=== PATIENT | male | born 1970 | race Caucasian/White ===

== ENCOUNTER 2016-08-21 10:11 | Inpatient (IN) | payer BC, MEDICAID ==
[~2016-08-21] VITALS: Ht 175.3 cm; Wt 93.4 kg
[~2016-08-21 10:11] MED LIST: ACET325T53 PO; ACID1TAB4 PO; ALBU2.5V7 NEB; AMIO200T2 PO; AMLO5TAB2 PO; ASPI-991 PO; ASPI81TA31 PO; ATOR20TA PO; Acetaminophen PO; CALC667C6 PO; CHOL10002 PO; FERR325T28 PO; FLUT1DIS28 INH; Folic Acid PO; HYDR-3326 PO; HYDR-894 PO; IPRA0.2S6 NEB; LACT1TAB20 PO; LEVE250T2 PO; LEVE250T4 PO; LEVE500T9 PO; LIDO30AD10 TD; LORA1TAB PO; METO25TA6 PO; PANT40TA2 PO; PHEN100C4 PO; PHEN200C5 PO; PHEN300C6 PO; PRED10TA PO; PRED20TA PO; RISP0.2515 PO; RISP2TAB5 PO; SENN-15 PO; SENN8.6T6 PO; THIA100T13 PO; TRAM50TA2 PO; Zolpidem Tartrate PO
--- NOTE | 2016-08-21 10:25 | NUR ---
PT IS IN ROOM #2B. DR SANDERS EVALUATED THE PT.
[2016-08-21 10:45] LABS: ABG BASE EXCESS -6.8 mmol/L; ABG HCO3 18.1 mmol/L; ABG PCO2 33.7 mmHg (35.0-45.0); ABG PH 7.348 (7.350-7.450); ABG PO2 106.6 mmHg (75.0-100.0); ABG SITE RIGHT RADIAL; ABG TOTAL HEMOGLOBIN 9.8 G/dL (13.5-18.0); COHb 0.8 % (0.5-1.5); MetHb 0.1 % (0.0-1.5); O2Hb 96.7 % (94.0-97.0)
[2016-08-21 11:00] LABS: BASOPHILS % (AUTO) 0.2 % (0.0-2.0); EOSINOPHILS # (AUTO) 0.4 K/uL (0.0-0.7); EOSINOPHILS % (AUTO) 3.3 % (0.0-7.0); HEMATOCRIT 26.8 % (40.0-50.0); HEMOGLOBIN 9.1 g/dL (14.0-18.0); LYMPHOCYTES # (AUTO) 1.2 K/uL (0.8-4.8); LYMPHOCYTES % (AUTO) 11.2 % (20.5-51.5); MEAN CORPUSCULAR HGB CONC 34 g/dL (32.0-37.0); MEAN CORPUSCULAR VOLUME 91.4 fL (82.0-92.0); MONOCYTES # (AUTO) 0.5 K/uL (0.1-1.30); MONOCYTES % (AUTO) 4.8 % (0.0-11.0); NEUTROPHILS # (AUTO) 8.9 K/uL (1.8-8.9); NEUTROPHILS % (AUTO) 80.5 % (38.5-71.5); PLATELET COUNT (AUTO) 204 K/uL (150-450); RED BLOOD CELL COUNT(AUTO) 2.93 MIL/uL (4.70-6.10); RED CELL DISTRIBUTION WIDTH 14.1 % (11.5-14.5); WHITE BLOOD COUNT (AUTO) 11.1 K/uL (4.0-11.2)
[2016-08-21 11:05] LABS: CALCIUM 8.3 mg/dL (8.5-10.1); POTASSIUM 5.2 mmol/L (3.5-5.1)
[2016-08-21 11:11] LABS: ALBUMIN 3.6 g/dL (3.4-5.0); BILIRUBIN,DIRECT 0.1 mg/dL (0.0-0.2); BILIRUBIN,TOTAL 0.3 mg/dL (0.2-1.0); TOTAL PROTEIN, SERUM 7.5 g/dL (6.4-8.2)
[2016-08-21 11:12] LABS: CREATININE 10.6 mg/dL (0.6-1.3)
[2016-08-21 11:40] LABS: THYROID STIMULATING HORMONE 2.473 mIU/mL (0.358-3.740)
--- NOTE | 2016-08-21 15:21 | NUR ---
ZEFERINO called to ED by OTILIO Baxter to assist with possible discharge planning/dialysis arrangements with patient. Patient was recently [place] [facility] [place] [facility] [phone], [id number] [address], [id number] (see ZEFERINO's notes from previous admissions). ZEFERINO consulted with Dr. Bermudez, who stated that patient requires dialysis and requested ZEFERINO's assistance with following up on the dialysis arrangements that had been made upon last discharge. ZEFERINO spoke with the Chris nurse at [facility], who stated that due to patient having a trach, the dialysis center required an RT to be with patient during the time patient was receiving dialysis. ZEFERINO then called [facility] and spoke with Lydia [phone], who confirmed that an RT was required while the patient was at their facility. Lydia also stated that a contract was still pending with [facility], which was also holding up their ability to provide services to patient. ZEFERINO then spoke with Galina [phone], hr administrator at [facility], who confirmed the information that ZEFERINO had obtained from Lydia at [facility], and stated that they were not equipped to provide an RT to be with the patient 3 x week, during his dialysis treatments. ZEFERINO then consulted with Dr. Bermudez again, and with Dr. Reyes. A discussion was had regarding utilizing another dialysis center, and Dr. Reyes was fine with that. ZEFERINO tried contacting [employer], , and was unable to get past the automated answering service due to the service continuously rotating through the extension options and not being able to speak with a live person. ZEFERINO consulted with Dr. Bermudez, who stated that she will be admitting patient for further care. See MD notes for additional details.
--- NOTE | 2016-08-21 16:08 | NUR ---
PICC LINE RNs GUEVARA AND MELVA WERE CALLED TO INSERT PICC LINE. MESSAGES WERE LEFT AT [facility] [place].
--- NOTE | 2016-08-21 16:10 | NUR ---
RADIO FREQUENCY DESIGN ENGINEER KRYSTYNA WAS NOTIFIED ABOUT PICC LINE INSERTION.
--- NOTE | 2016-08-21 16:41 | NUR ---
PT WAS TRANSFERED TO TELEMETRY ROOM #228. REPORT GIVEN TO STREAM CONTROL OFFICER.
[2016-08-21 16:50] VITALS: BP 106/73
--- NOTE | 2016-08-21 17:13 | NUR ---
Dr. Dixon paged in regard to admitting orders for patient. Including medication and oxygen orders. Awaiting call back. Dr. Reyes is the admitting MD. Patient is stable at this time. Vitals WNL. Patient is malodorous. Trach hasnt been changed in quite awhile based on the lack of cleanliness. Inner cannula changed. Patient placed on telemetry.
--- NOTE | 2016-08-21 18:53 | NUR ---
Dr. Dixon has not called back with orders yet for patient. PICCline nurse Teofilo came in to put in a midline in the right upper arm number 18 gauge. Patient is noted slightly agitated and aggressive. Patient insisting on getting IV pain medications. Patient however needs orders.
[2016-08-21 19:00] VITALS: BP 149/92
--- NOTE | 2016-08-21 20:00 | NUR ---
RECEIVED PATIENT ASLEEP IN BED. NO S/S OF PAIN OR DISCOMFORT. NO RESP. DISTRESS NOTED. MID-LINE NOTED TO RIGHT UPPER ARM. VSS. ON TELE SR WITH BBB. TRACH NOTED, #6 SHILEY WITH TRACH MASK, @ 28% AEROSOL. CALL LIGHT IN REACH. ALL NEEDS ATTENDED. WILL CONTINUE TO MONITOR.
[2016-08-21] MEDS ORDERED: ACETAMINOPHEN 325 MG TABLET PO PRN (20:30)
[2016-08-21] MEDS ORDERED: TRAMADOL HCL 50 MG TABLET PO PRN (20:30)
[2016-08-21] MEDS ORDERED: PHENYTOIN PO SCH (20:30)
[2016-08-21] MEDS: ATORVASTATIN 20 MG TABLET PO SCH (20:54)
[2016-08-21] MEDS: LEVETIRACETAM 250 MG TABLET PO SCH ×2 (20:54)
[2016-08-21] MEDS: risperiDONE 2 MG TABLET PO SCH (21:00)
[2016-08-21] MEDS ORDERED: risperiDONE 0.25 MG TABLET PO SCH (21:00)
[2016-08-21] MEDS: SENNOSIDES 1 TABLET PO SCH (21:24)
[2016-08-21] MEDS: PHENYTOIN SODIUM EXTENDED 100 MG CAPSULE.SA PO SCH (21:24)
[2016-08-21] MEDS: HYDROCODONE/APAP 5-325MG TABLET PO PRN (21:34)
[2016-08-21] MEDS: LORAZEPAM 1 MG TABLET PO PRN (21:34)
[2016-08-22 00:07] VITALS: BP 100/46
[2016-08-22 04:00] VITALS: BP 96/52
[2016-08-22] MEDS: HYDROCODONE/APAP 5-325MG TABLET PO PRN ×4 (05:48→23:03)
--- NOTE | 2016-08-22 06:32 | NUR ---
PATIENT ASLEEP IN BED. ON TELE SR WITH BBB. NO RESP. DISTRESS NOTED. CALL LIGHT IN REACH. ALL NEEDS ATTENDED. WILL CONTINUE TO MONITOR.
[2016-08-22] MEDS ORDERED: HYDROCODONE/APAP 5-325MG TABLET PO PRN (08:30)
[2016-08-22] MEDS ORDERED: Medication Not On Formulary EA (Lactobacillus Acidophilus (Acidophilus) 1 EACH) PO SCH (09:00)
[2016-08-22] MEDS ORDERED: predniSONE 10 MG TABLET PO SCH (09:00)
[2016-08-22] MEDS ORDERED: ASPIRIN 81 MG TAB.CHEW PO SCH (09:00)
[2016-08-22] MEDS ORDERED: predniSONE 20 MG TABLET PO SCH ×2 (09:00)
[2016-08-22] MEDS ORDERED: risperiDONE 2 MG TABLET PO SCH (09:00)
[2016-08-22] MEDS ORDERED: ACIDOPHILUS/BULGARICUS CHEW TAB PO SCH (09:00)
[2016-08-22] MEDS ORDERED: EPOETIN ALFA 10,000 UNITS/ML VIAL SQ ONE (09:33)
[2016-08-22] MEDS: IPRATROPIUM BROMIDE 0.5 MG/2.5 ML NEBU NEB SCH ×3 (10:04→19:48)
[2016-08-22] MEDS: ALBUTEROL SULFATE 2.5 MG/3 ML NEBU NEB SCH ×3 (10:04→19:48)
[2016-08-22] MEDS: FERROUS SULFATE 325 MG TABEC PO SCH (10:08)
[2016-08-22] MEDS: THIAMINE HCL 100 MG TABLET PO SCH (10:08)
[2016-08-22] MEDS: LIDOCAINE 5% PATCH TD SCH (10:09)
[2016-08-22] MEDS: CHOLECALCIFEROL 1,000 UNIT TABLET PO SCH ×2 (10:09→22:31)
[2016-08-22] MEDS: AMLODIPINE 5 MG TABLET PO SCH ×2 (10:09→22:29)
[2016-08-22] MEDS: PHENYTOIN 50 MG TAB.CHEW PO SCH (10:10)
[2016-08-22] MEDS: METOPROLOL TARTRATE 25 MG TABLET PO SCH ×3 (10:11→17:59)
[2016-08-22] MEDS: PHENYTOIN SODIUM EXTENDED 100 MG CAPSULE.SA PO SCH ×2 (10:11→21:00)
[2016-08-22] MEDS: AMIODARONE HCL 200 MG TABLET PO SCH (10:12)
[2016-08-22] MEDS: ASPIRIN EC 81 MG TABLET.DR PO SCH (10:12)
[2016-08-22] MEDS: ACIDOPHILUS/BULGARICUS CHEW TAB PO SCH ×2 (10:12→21:00)
[2016-08-22] MEDS: CALCIUM ACETATE 667 MG CAPSULE PO SCH ×3 (10:12→17:10)
[2016-08-22] MEDS: FLUTICASONE/SALMETEROL 250/50 INHALER INH SCH ×2 (10:20→21:00)
--- NOTE | 2016-08-22 10:30 | NUR ---
PT REQUESTED DILAUDID IV, PAGED DR. HOOD OFFICE
--- NOTE | 2016-08-22 11:00 | NUR ---
PT REQUESTED BENADRYL IV, PAGED DR. HOOD
[2016-08-22 11:16] VITALS: BP 101/64
[2016-08-22] MEDS: hydrALAZINE HCL 25 MG TABLET PO SCH ×2 (14:00→22:00)
--- NOTE | 2016-08-22 14:24 | NUR ---
PT WANTS TO LET DR. HOOD THAT HE WANTS "TO GO HOME". AND WANTS THE DR. HOOD KNOW OF THAT
--- NOTE | 2016-08-22 14:24 | NUR ---
PT REQUESTING DILAUDID AND BENADRYL IV, PAGED DR HOOD OFFICE.
--- NOTE | 2016-08-22 14:38 | NUR ---
DR HOOD CALLED IN TO ORDER BANADRYL IV 25MG Q6H PRN, ORDER NOTED CARRIED OUT.
[2016-08-22] MEDS: diphenhydrAMINE 50 MG/1 ML VIAL IV PRN ×2 (14:52→22:33)
[2016-08-22] MEDS ORDERED: FLEET ENEMA 133 ML BOTTLE RC PRN (15:30)
[2016-08-22] MEDS ORDERED: BISACODYL 10 MG SUPP.RECT RC PRN (15:30)
[2016-08-22 15:36] VITALS: BP 145/90
--- NOTE | 2016-08-22 15:41 | NUR ---
pt received dialysis. Pt's VS WNL. 2.5 L out per dialysis nurse.
[2016-08-22] MEDS: MUPIROCIN 2% OINT 22 GM TUBE NS SCH ×2 (16:09→21:00)
--- NOTE | 2016-08-22 19:01 | NUR ---
PT IS LAYING IN BED COMFORTABLY. NO S/S OF RESPIRATORY DISTRESS NOTED. PT REMOVED SHILEY MULTIPLE TIMES, EDUCATION IS GIVEN TO THE PT. SHILEY #6 IS REPLACED. NO PAIN NOTED. MIDLINE IS INTACT/PATENT. ALL SAFETY NEEDS AR MET.
--- NOTE | 2016-08-22 19:10 | NUR ---
Received report from Lainey Castaneda RN. Pt appears anxious but cooperative.
[2016-08-22 20:58] VITALS: BP 138/74
[2016-08-22] MEDS ORDERED: SENNOSIDES/DOCUSATE SODIUM TABLET PO SCH (21:00)
[2016-08-22] MEDS ORDERED: LEVETIRACETAM 500 MG TABLET PO SCH (21:00)
[2016-08-22] MEDS: SENNOSIDES 1 TABLET PO SCH (22:28)
[2016-08-22] MEDS: LEVETIRACETAM 250 MG TABLET PO SCH (22:31)
[2016-08-22] MEDS: risperiDONE 2 MG TABLET PO SCH (22:31)
[2016-08-22] MEDS: ATORVASTATIN 20 MG TABLET PO SCH (22:31)
--- NOTE | 2016-08-22 23:08 | NUR ---
RN unintentionally charted an administration of Kirkwood 5/325mg at 23:03. Medication was not administered or due at this time. Charting of administration was undone. This note serves as clarification for any confusion as a result of the charting on this medication.
[2016-08-23 00:20] VITALS: BP 121/67
[2016-08-23] MEDS: diphenhydrAMINE 50 MG/1 ML VIAL IV PRN ×4 (04:38→23:00)
[2016-08-23 05:16] VITALS: BP 134/87
[2016-08-23] MEDS: hydrALAZINE HCL 25 MG TABLET PO SCH ×3 (06:00→23:30)
[2016-08-23 06:44] LABS: BASOPHILS % (AUTO) 0.4 % (0.0-2.0); EOSINOPHILS # (AUTO) 0.7 K/uL (0.0-0.7); EOSINOPHILS % (AUTO) 7.6 % (0.0-7.0); HEMATOCRIT 24.3 % (40.0-50.0); HEMOGLOBIN 8.5 g/dL (14.0-18.0); LYMPHOCYTES # (AUTO) 1.5 K/uL (0.8-4.8); LYMPHOCYTES % (AUTO) 17.6 % (20.5-51.5); MEAN CORPUSCULAR HEMOGLOBIN 31.9 uug (27.0-31.0); MEAN CORPUSCULAR HGB CONC 35 g/dL (32.0-37.0); MEAN CORPUSCULAR VOLUME 91.4 fL (82.0-92.0); MONOCYTES # (AUTO) 0.8 K/uL (0.1-1.30); MONOCYTES % (AUTO) 8.9 % (0.0-11.0); NEUTROPHILS # (AUTO) 5.8 K/uL (1.8-8.9); NEUTROPHILS % (AUTO) 65.5 % (38.5-71.5); PLATELET COUNT (AUTO) 162 K/uL (150-450); RED BLOOD CELL COUNT(AUTO) 2.66 MIL/uL (4.70-6.10); WHITE BLOOD COUNT (AUTO) 8.8 K/uL (4.0-11.2)
[2016-08-23 07:00] LABS: ALBUMIN 3.6 g/dL (3.4-5.0); BILIRUBIN,TOTAL 0.4 mg/dL (0.2-1.0); CALCIUM 8.3 mg/dL (8.5-10.1); MAGNESIUM 2.1 mg/dL (1.8-2.4); PHOSPHOROUS 6.4 mg/dL (2.5-4.9); POTASSIUM 3.5 mmol/L (3.5-5.1); TOTAL PROTEIN, SERUM 7.3 g/dL (6.4-8.2)
[2016-08-23] MEDS: PANTOPRAZOLE SODIUM 40 MG TABLET.DR PO SCH (07:07)
[2016-08-23] MEDS: IPRATROPIUM BROMIDE 0.5 MG/2.5 ML NEBU NEB SCH ×5 (07:08→19:18)
[2016-08-23] MEDS: ALBUTEROL SULFATE 2.5 MG/3 ML NEBU NEB SCH ×5 (07:35→19:19)
--- NOTE | 2016-08-23 07:56 | NUR ---
PT IS LAYING IN BED COMFORTABLY.NO S/S OF RESPIRATORY DISTRESS NOTED. NO PAIN NOTED. MIDLINE INTACT/PATENT. ALL SAFETY NEEDS ARE MET. WILL CONTINUE TO MONITOR.
[2016-08-23] MEDS: CALCIUM ACETATE 667 MG CAPSULE PO SCH ×3 (08:42→17:08)
[2016-08-23] MEDS: LIDOCAINE 5% PATCH TD SCH (09:14)
[2016-08-23] MEDS: MUPIROCIN 2% OINT 22 GM TUBE NS SCH ×2 (09:14→20:47)
[2016-08-23] MEDS: FLUTICASONE/SALMETEROL 250/50 INHALER INH SCH ×2 (09:14→20:47)
[2016-08-23] MEDS: PHENYTOIN 50 MG TAB.CHEW PO SCH (09:27)
[2016-08-23] MEDS: ASPIRIN EC 81 MG TABLET.DR PO SCH (09:27)
[2016-08-23] MEDS: HYDROCODONE/APAP 5-325MG TABLET PO PRN ×3 (09:28→22:52)
[2016-08-23] MEDS: FERROUS SULFATE 325 MG TABEC PO SCH (09:28)
[2016-08-23] MEDS: AMLODIPINE 5 MG TABLET PO SCH ×2 (09:28→21:43)
[2016-08-23] MEDS: AMIODARONE HCL 200 MG TABLET PO SCH (09:28)
[2016-08-23] MEDS: ACIDOPHILUS/BULGARICUS CHEW TAB PO SCH ×2 (09:28→20:49)
[2016-08-23] MEDS: CHOLECALCIFEROL 1,000 UNIT TABLET PO SCH ×2 (09:29→20:49)
[2016-08-23] MEDS: PHENYTOIN SODIUM EXTENDED 100 MG CAPSULE.SA PO SCH ×2 (09:29→20:49)
[2016-08-23] MEDS: METOPROLOL TARTRATE 25 MG TABLET PO SCH ×3 (09:29→17:00)
[2016-08-23] MEDS: THIAMINE HCL 100 MG TABLET PO SCH (09:30)
[2016-08-23] MEDS ORDERED: ZOLPIDEM 5 MG TABLET PO PRN (09:45)
[2016-08-23 11:12] VITALS: BP 131/76
[2016-08-23 15:05] VITALS: BP 128/86
--- NOTE | 2016-08-23 18:58 | NUR ---
PT IS SITTING IN BED COMFORTABLY. NO S/S OF RESPIRATORY DISTRESS NOTED. NO PAIN NOTED. ALL SAFETY NEEDS ARE MET. MIDLINE INTACT/PATENT.
[2016-08-23 20:08] VITALS: BP 128/70
[2016-08-23] MEDS: LORAZEPAM 1 MG TABLET PO PRN (20:25)
[2016-08-23] MEDS: ATORVASTATIN 20 MG TABLET PO SCH (20:49)
[2016-08-23] MEDS: risperiDONE 2 MG TABLET PO SCH (20:49)
[2016-08-23] MEDS: SENNOSIDES 1 TABLET PO SCH (20:49)
[2016-08-23] MEDS: LEVETIRACETAM 250 MG TABLET PO SCH ×2 (20:49→21:00)
--- NOTE | 2016-08-23 21:00 | NUR ---
Keppra 250mg PO @ 2100 not given. MD order is for "After dialysis". Regularly scheduled dose of Keppra 750mg PO "HS"@2100 given per MD order.
[2016-08-24 05:51] VITALS: BP 117/74
[2016-08-24] MEDS: hydrALAZINE HCL 25 MG TABLET PO SCH ×3 (06:00→21:37)
[2016-08-24] MEDS: PANTOPRAZOLE SODIUM 40 MG TABLET.DR PO SCH (06:37)
[2016-08-24] MEDS: LORAZEPAM 1 MG TABLET PO PRN ×3 (06:55→23:48)
[2016-08-24] MEDS: diphenhydrAMINE 50 MG/1 ML VIAL IV PRN ×3 (07:08→20:10)
[2016-08-24] MEDS: IPRATROPIUM BROMIDE 0.5 MG/2.5 ML NEBU NEB SCH ×4 (07:10→19:18)
[2016-08-24] MEDS: ALBUTEROL SULFATE 2.5 MG/3 ML NEBU NEB SCH ×4 (07:10→19:18)
--- NOTE | 2016-08-24 07:30 | NUR ---
Received awake. alert, oriented x 4, sitting by the door, asking for Benadryl, given. He went back to bed and resting after.
[2016-08-24] MEDS: CALCIUM ACETATE 667 MG CAPSULE PO SCH ×3 (08:00→18:14)
[2016-08-24] MEDS: AMLODIPINE 5 MG TABLET PO SCH ×2 (09:00→20:28)
[2016-08-24] MEDS: METOPROLOL TARTRATE 25 MG TABLET PO SCH ×3 (09:00→18:14)
[2016-08-24] MEDS: MUPIROCIN 2% OINT 22 GM TUBE NS SCH ×2 (10:59→20:28)
[2016-08-24] MEDS: FLUTICASONE/SALMETEROL 250/50 INHALER INH SCH ×2 (10:59→20:27)
[2016-08-24] MEDS: AMIODARONE HCL 200 MG TABLET PO SCH (11:00)
--- NOTE | 2016-08-24 11:00 | NUR ---
Refused to take medications at this time
[2016-08-24] MEDS: ASPIRIN EC 81 MG TABLET.DR PO SCH (11:01)
[2016-08-24] MEDS: PHENYTOIN 50 MG TAB.CHEW PO SCH (11:01)
[2016-08-24] MEDS: PHENYTOIN SODIUM EXTENDED 100 MG CAPSULE.SA PO SCH ×2 (11:01→20:26)
[2016-08-24] MEDS: FERROUS SULFATE 325 MG TABEC PO SCH (11:02)
[2016-08-24] MEDS: ACIDOPHILUS/BULGARICUS CHEW TAB PO SCH ×2 (11:02→20:26)
[2016-08-24] MEDS: LIDOCAINE 5% PATCH TD SCH (11:04)
[2016-08-24 11:28] VITALS: BP 125/62
[2016-08-24] MEDS: FOLIC ACID 1 MG TABLET PO SCH (13:39)
[2016-08-24] MEDS: THIAMINE HCL 100 MG TABLET PO SCH (13:39)
[2016-08-24] MEDS: CHOLECALCIFEROL 1,000 UNIT TABLET PO SCH ×2 (13:40→20:26)
--- NOTE | 2016-08-24 13:40 | NUR ---
Hemodialysis done with 3.5 L output. BP 118/59, hr 71. Due medications given.
[2016-08-24] MEDS: HYDROCODONE/APAP 5-325MG TABLET PO PRN ×2 (13:56→20:09)
[2016-08-24 16:06] VITALS: BP 115/68
--- NOTE | 2016-08-24 17:40 | NUR ---
Sleeping after Ativan po given.
[2016-08-24] MEDS: ATORVASTATIN 20 MG TABLET PO SCH (20:26)
[2016-08-24] MEDS: LEVETIRACETAM 250 MG TABLET PO SCH (20:27)
[2016-08-24] MEDS: SENNOSIDES 1 TABLET PO SCH (20:27)
[2016-08-24] MEDS: risperiDONE 2 MG TABLET PO SCH (20:27)
[2016-08-24 21:37] VITALS: BP 131/83
[2016-08-24 22:15] VITALS: BP 125/71
[2016-08-25] MEDS: diphenhydrAMINE 50 MG/1 ML VIAL IV PRN ×3 (02:06→13:57)
[2016-08-25] MEDS: PANTOPRAZOLE SODIUM 40 MG TABLET.DR PO SCH (06:29)
[2016-08-25 06:30] VITALS: BP 118/76
[2016-08-25] MEDS: hydrALAZINE HCL 25 MG TABLET PO SCH (06:30)
--- NOTE | 2016-08-25 06:33 | NUR ---
END OF SHIFT NOTES: PT SLEEPING AT THIS TIME. IN NO ACUTE SIGNS OF DISTRESS. TRACH INTACT. REQUESTED FOR BENADRYL, NORCO, ATIVAN, AND AMBIEN DURING SHIFT, GIVEN PRESCRIBED. PT CONSTANTLY ASKED FOR SNACKS (CRACKERS, JELLO). SAFETY OBSERVED. CALL LIGHT WITHIN REACH.
--- NOTE | 2016-08-25 07:29 | NUR ---
Sleeping, comfortable. O2 to trach
[2016-08-25] MEDS: ALBUTEROL SULFATE 2.5 MG/3 ML NEBU NEB SCH ×3 (07:59→15:18)
[2016-08-25] MEDS: IPRATROPIUM BROMIDE 0.5 MG/2.5 ML NEBU NEB SCH ×3 (07:59→15:18)
[2016-08-25] MEDS ORDERED: AMIO200T2 PO (08:14)
[2016-08-25] MEDS: PHENYTOIN SODIUM EXTENDED 100 MG CAPSULE.SA PO SCH (08:26)
[2016-08-25] MEDS: CALCIUM ACETATE 667 MG CAPSULE PO SCH ×2 (08:26→12:15)
[2016-08-25] MEDS: FLUTICASONE/SALMETEROL 250/50 INHALER INH SCH (08:26)
[2016-08-25] MEDS: MUPIROCIN 2% OINT 22 GM TUBE NS SCH (08:26)
[2016-08-25] MEDS: ASPIRIN EC 81 MG TABLET.DR PO SCH (08:27)
[2016-08-25] MEDS: ACIDOPHILUS/BULGARICUS CHEW TAB PO SCH (08:27)
[2016-08-25] MEDS: FERROUS SULFATE 325 MG TABEC PO SCH (08:27)
[2016-08-25] MEDS: PHENYTOIN 50 MG TAB.CHEW PO SCH (08:27)
[2016-08-25] MEDS: FOLIC ACID 1 MG TABLET PO SCH (08:28)
[2016-08-25] MEDS: CHOLECALCIFEROL 1,000 UNIT TABLET PO SCH (08:28)
[2016-08-25] MEDS: THIAMINE HCL 100 MG TABLET PO SCH (08:28)
[2016-08-25] MEDS: HYDROCODONE/APAP 5-325MG TABLET PO PRN (08:29)
[2016-08-25] MEDS: METOPROLOL TARTRATE 25 MG TABLET PO SCH ×2 (08:35→12:16)
[2016-08-25] MEDS: AMLODIPINE 5 MG TABLET PO SCH (08:36)
[2016-08-25] MEDS: LIDOCAINE 5% PATCH TD SCH (08:37)
[2016-08-25] MEDS ORDERED: AMIODARONE HCL 200 MG TABLET PO SCH ×2 (09:00→15:00)
--- NOTE | 2016-08-25 10:15 | NUR ---
Faxed patient's Clinical Reviews to [facility] Derrick ROD [ ; ], with Ref#[id number]
--- NOTE | 2016-08-25 10:16 | NUR ---
The patient will be discharged today to [facility] [ ; [address] [place] [address]] where he has a schedule for Mondays, Wednesdays, and Fridays at 2:45 p.m. Spoke to Ariel from [facility] [ ; ] and he confirmed that they will provide the RT needed by the patient to stay with him for the duration of the dialysis. [facility] [ ] arranged for him to be picked up from [facility] to [facility] and then once his dialysis is over he will be discharged back to [facility] [ ; [address] [place] [address]]. Also spoke with Galina [ ; [phone]], from [facility] confirmed that they will admit the patient today after his dialysis. [facility] already faxed her a contract and she stated that she will sign the contract and fax it back to them today. The patient is aware and in agreement with his discharge plan. His RN, Sharmila, is updated on his discharge as well.
[2016-08-25 12:00] VITALS: BP 107/60
[2016-08-25] MEDS: LORAZEPAM 1 MG TABLET PO PRN (12:15)
[2016-08-25 13:25] LABS: HCV AB 0.1 s/co ratio (0.0-0.9); HEPATITIS B SURFACE AB Reactive (.); HEPATITIS B SURFACE AG Negative (Negative)
--- NOTE | 2016-08-25 14:13 | NUR ---
With discharge order to [facility], will do Hemodialysis first at [facility], arranged. Midline removed. HD cath intact. DC instruction given to patient, verbalized understanding. Went home per gurney/ambulance in fair condition, not in distress, afebrile
--- NOTE | 2016-08-25 16:23 | NUR ---
Lauren from [facility] called and stated that they are not providing dialysis for the patient because they have not given him care for more than 30 days and their protocol is to get another authorization from the insurance company. Spoke to Dr. Reyes and he would like for the patient to return to [facility] to [facility] [ ; [address], [place] [address]]. Carolina from [facility] to [facility] confirmed that they will re-admit the patient. Dr. Reyes ordered home health to get a complete blood lab on 08/27/16. Faxed all the needed paperwork to [facility]. Also called Derrick from [facility] [ ] about the situation and unfortunately he doesn't provide the authorization for out-patient but he stated that the [facility] needs to to call their Pre-Cert Line - opt.6. Asked him about home health and he suggested to fax it to a company with a contract. Faxed his information to [facility] [ ; [phone]].
== END 2016-08-25 14:00 | DRG 682 ==
LOC: ER 10:14 → TELE 16:17 → MED 08-23 20:24 → UNDODISIN 08-25 14:48
PROVIDERS: ADMIT Internal Medicine; ATTEND Internal Medicine
PROC: 05H533Z Insertion of Infusion Device into Right Subclavian Vein, Percutaneous Approach (ICD-10-PCS; principal; 2016-08-21)
PROC: 5A1D60Z (ICD-10-PCS; 2016-08-22)
DX: I12.0 Hypertensive chronic kidney disease with stage 5 chronic kidney disease or end stage renal disease (principal); N18.6 End stage renal disease; I50.43 Acute on chronic combined systolic (congestive) and diastolic (congestive) heart failure; J96.10 Chronic respiratory failure, unspecified whether with hypoxia or hypercapnia; E87.1 Hypo-osmolality and hyponatremia; Z99.2 Dependence on renal dialysis; D63.1 Anemia in chronic kidney disease; G40.909 Epilepsy, unspecified, not intractable, without status epilepticus; Z93.0 Tracheostomy status; Z93.1 Gastrostomy status; I25.10 Atherosclerotic heart disease of native coronary artery without angina pectoris; E78.5 Hyperlipidemia, unspecified; I48.91 Unspecified atrial fibrillation; Z86.73 Personal history of transient ischemic attack (TIA), and cerebral infarction without residual deficits; Z76.5 Malingerer [conscious simulation]; Z88.5 Allergy status to narcotic agent; G89.4 Chronic pain syndrome; F29 Unspecified psychosis not due to a substance or known physiological condition; I45.81 Long QT syndrome; R53.1 Weakness; Z79.899 Other long term (current) drug therapy; Z87.891 Personal history of nicotine dependence; R29.6 Repeated falls; Z91.81 History of falling; K59.00 Constipation, unspecified
CPT/HCPCS: 36415; 36600; 70030-TC; 71010; 73502; 73562; 83735; 84100; 84443; 85025; 85730; 86706; 86803; 87340; 93005; 94640; 94664; A4217; A4663; J0885; J1200; J3590

== ENCOUNTER 2016-08-28 16:55 | Emergency (ER) | payer BC, MEDICAID ==
[~2016-08-28] VITALS: Ht 167.6 cm; Wt 90.7 kg
[~2016-08-28 16:55] MED LIST changes: -ASPI81TA31 PO; -LEVE500T9 PO; -PHEN100C4 PO; -PRED10TA PO; -PRED20TA PO; -RISP0.2515 PO; -RISP2TAB5 PO; -SENN-15 PO
--- NOTE | 2016-08-28 17:15 | NUR ---
dr hilario at the bedside for eval and exam.
[2016-08-28 17:58] LABS: CALCIUM 8.4 mg/dL (8.5-10.1); POTASSIUM 5.1 mmol/L (3.5-5.1)
--- NOTE | 2016-08-28 18:00 | NUR ---
called [facility] to tx pt back per md order, phone stay constantly busy, unable to talk to facility representive.
--- NOTE | 2016-08-28 18:02 | NUR ---
Pt request dinner, dinner provided, pt ate 100% of tray. denies pain. no SOB noted.
[2016-08-28 18:13] LABS: CREATININE 10.1 mg/dL (0.6-1.3)
--- NOTE | 2016-08-28 18:30 | NUR ---
called [facility] for pt's tx back to facility, eta 1 and half hour.
--- NOTE | 2016-08-28 19:12 | NUR ---
called multiple times to speak and give report to [facility] facility, phone remained busy. pt is aware of transfer.
--- NOTE | 2016-08-28 19:45 | NUR ---
Continue to call multiple times to speak and give report to [facility] facility, phone remained busy. Pt is aware of transfer.
--- NOTE | 2016-08-28 20:30 | NUR ---
Report to [facility], [facility] going [facility].Pt continue on 6L of mist, satting 99-100% via trache (kristin # 6).Pt remained AOX4 ambulatory, denies any pain, AV shunt at left arm positive for thrill.Alexi catheter in place at Rt chest.Called [facility] again to give report, but no to avail/the phone has been busy.
--- NOTE | 2016-08-28 20:30 | NUR ---
Patient discharged to [facility] in stable conditon. Written and verbal after care instructions given. Patient verbalizes understanding of instructions.
[2016-08-28 20:37] VITALS: BP 122/73
--- NOTE | 2016-08-28 20:38 | NUR ---
Transferred pt to [facility] home via [facility], pt was on 6L mist via trache, satting 99-100%.
== END 2016-08-28 20:40 | disposition home or self-care (01) ==
LOC: ER 16:55
DX: Z49.01 Encounter for fitting and adjustment of extracorporeal dialysis catheter (principal); N18.6 End stage renal disease; I50.9 Heart failure, unspecified; I48.91 Unspecified atrial fibrillation; F17.200 Nicotine dependence, unspecified, uncomplicated; F19.10 Other psychoactive substance abuse, uncomplicated; Z88.6 Allergy status to analgesic agent; Z79.82 Long term (current) use of aspirin
CPT/HCPCS: 36415; A4663